=== PATIENT | male | born 1955 | race Caucasian/White ===

== ENCOUNTER 2020-02-23 09:11 | Emergency (ER) | payer MEDICARE ==
[~2020-02-23 09:11] MED LIST: ASPIRIN 32325 MG/TAB PO; FOLIC ACID 11 MG/TA1 PO; IPRATROPIUM BROM3 M1 IH; LIPITOR 10MG10 MG PO; LOPRESSOR 225 MG/TAB PO; PLETAL 100MG T100 MG PO; THERAGRAN TAB1 UDTAB PO; THIAMINE 1100 MG/TAB PO
[2020-04-05] MEDS ORDERED: PLETAL 100MG T100 MG PO (14:19)
[2020-04-05] MEDS ORDERED: LIPITOR20 MG PO (14:20)
[2020-04-05] MEDS ORDERED: LOPRESSOR 225 MG/TAB PO (14:20)
[2020-04-05] MEDS ORDERED: ASPIRIN 32325 MG/TAB PO (14:25)
== END 2020-02-23 09:29 | disposition left against medical advice (07) ==
LOC: COL.ER 09:11
DX: Z00.00 Encounter for general adult medical examination without abnormal findings (principal)

== ENCOUNTER 2020-04-06 09:09 | Day surgery (SDC) | payer MEDICARE, MEDICAID ==
[2020-04-06] VITALS (9 sets, daily range): BP systolic 118–146; BP diastolic 69–83; PULSE 70–87; TEMP 97.6–99.2
[~2020-04-06] VITALS: Ht 177.8 cm; Wt 85.1 kg
[~2020-04-06 09:09] MED LIST changes: +LIPITOR20 MG PO
--- NOTE | 2020-04-06 13:50 | NUR ---
Pt arrived to room at this time with PACU nurses. Resting in bed, CBI runnign at fast pace, urine is clear. Wants to eat, alert and oriented, VSS, will continue to monitor.
--- NOTE | 2020-04-06 18:17 | NUR ---
Pt has done well over shift, urine is reddish clear at moderate to slower rate. Pt asking about CT of chest, will address with Dr. Cruz if he rounds on the floor. VSS. REsting well, denies needs, will give bedside shift report to nightshift nruse who will resume care.
--- NOTE | 2020-04-06 20:00 | NUR ---
PT RESTING IN BED. CBI RUNNING AT MOD RATE W/ PINK DILUTE URINE. NO CLOTS BLADDER SPASMS. PT DROWSY BUT ANSWERS QUESTIONS APPROPRIATELY. IVF'S .45NS W/20KCL CONTINUES AT 75CC/HR TO LT F/A. PT DENEIS NEED FOR PAIN MEDS AT THIS TIME. CALL LIGHT IN REACH.
[2020-04-07 03:08] VITALS: BP 136/71; PULSE 76; TEMP 97.5
--- NOTE | 2020-04-07 04:07 | NUR ---
PT ASKS ABOUT CT CHEST D/T "SPOTS ON MY LUNGS AND LIVER" IV FELL OUT FROM LT F/A SITE.
--- NOTE | 2020-04-07 04:30 | NUR ---
NO CT ORDERS FOUND. WILL CLARIFY W/ DR IN AM.
[2020-04-07 07:28] LABS: BASO % 0.1 % (0.0-2.0); EOS % 0.1 % (0-4.0); GRAN # 10.8 (1.4-6.5); GRAN % 80.9 % (42.2-75.2); HEMATOCRIT 46.6 % (42.0-52.0); HEMOGLOBIN 15.2 g/dl (13.5-18.0); LYMPH # 1.5 (1.2-3.4); LYMPH % 11.5 % (20.0-51.0); MEAN CELL VOLUME 92 fl (80.0-100.0); MEAN CORPUSCULAR HEMOGLOBIN 30 pg (27.0-31.0); MEAN CORPUSCULAR HGB CONC 33 g/dl (33.0-37.0); MEAN PLATELET VOLUME 9.7 fl (7.4-10.4); MONO # 0.9 (0.1-0.6); PLATELET COUNT 205 K/mm3 (130-400); RED BLOOD COUNT 5.08 M/mm3 (4.20-5.60); REDCELL DISTRIBUTION WIDTH-CV 12.9 % (11.5-14.5)
[2020-04-07 07:29] VITALS: BP 141/76; PULSE 70; TEMP 97.5
[2020-04-07 07:42] LABS: CALCIUM 8.3 mg/dL (8.4-10.2); CREATININE, serum 1.03 (0.66-1.25); POTASSIUM 4.4 mmol/L (3.4-5.0)
--- NOTE | 2020-04-07 09:16 | NUR ---
Rizvi catheter discontinued as ordered. Primed with 200ml of saline. Removed 30ml from catheter balloon and removed catheter. Megan-care provided. Catheter stat-lock removed. Patient tolerated well, no complaints of pain. Explained to call everytime he voids so we can monitor his urine. Explained how the six cup routine works. Patient verbalized understanding. New IV started for patients CT scan. No other changes at this time. Call light within reach.
--- NOTE | 2020-04-07 10:01 | NUR ---
Initial visit; Patient thanked Foreign Correspondent for looking in on him and offering spiritual care.
[2020-04-07 11:08] VITALS: BP 140/79; PULSE 65; TEMP 97.4
--- NOTE | 2020-04-07 11:17 | NUR ---
ELMA met with the patient to discuss discharge plan. The patient lives alone in [place]. He reports independence with ADLs and has a cane and walker. The patient's PCP is Dr. Viktor Singh and he receives his medications from [facility]. He reports no difficulties obtaining his meds. The patient does not have a DPOA-HC completed. The patient plans to return home upon discharge. No additional needs at this time.
--- NOTE | 2020-04-07 12:50 | NUR ---
Patient is discharging home. He is voiding without issues. Urine is pink, no clots noted. It got senior research manager by the 6 cup. No pain with voiding. His CT has been completed. Discharge instructions discussed with patient. INT discontinued. All belongings sent with patient. He called for his ride. Explained when his follow up appointment is. Explained to hold his aspirin until Saturday. He verbalized understanding. Copies of discharge instructions sent with patient. Patient walked out with this nurse.
== END 2020-04-07 12:50 | disposition home or self-care (01) ==
LOC: SDCO 09:09 → SURG 13:50 → SDCO 04-07 12:50
PROVIDERS: Urology
DX: C67.4 Malignant neoplasm of posterior wall of bladder (principal); R31.0 Gross hematuria; E11.9 Type 2 diabetes mellitus without complications; I10 Essential (primary) hypertension; J44.9 Chronic obstructive pulmonary disease, unspecified; I25.10 Atherosclerotic heart disease of native coronary artery without angina pectoris; E78.00 Pure hypercholesterolemia, unspecified; F17.210 Nicotine dependence, cigarettes, uncomplicated; Z20.822 Contact with and (suspected) exposure to COVID-19; Z88.1 Allergy status to other antibiotic agents; Z79.82 Long term (current) use of aspirin; Z88.0 Allergy status to penicillin; Z95.1 Presence of aortocoronary bypass graft; Z95.5 Presence of coronary angioplasty implant and graft; Z79.899 Other long term (current) drug therapy
CPT/HCPCS: OP; J0690; J1100; J1885; J2405; J2704; J3010; J3480; J7120; Q9967

== ENCOUNTER 2020-06-04 13:36 | Emergency (ER) | payer MEDICARE, MEDICAID ==
[~2020-06-04] VITALS: Ht 177.8 cm; Wt 84.1 kg
[2020-06-04 13:46] VITALS: TEMP 98.1
[2020-06-04 14:20] LABS: BASO % 0.5 % (0.0-2.0); EOS # 0.1 (0.0-0.7); EOS % 0.7 % (0-4.0); GRAN # 6.1 (1.4-6.5); GRAN % 71.8 % (42.2-75.2); HEMOGLOBIN 16.9 g/dl (13.5-18.0); LYMPH # 1.5 (1.2-3.4); LYMPH % 17.2 % (20.0-51.0); MEAN CELL VOLUME 86 fl (80.0-100.0); MEAN CORPUSCULAR HEMOGLOBIN 29 pg (27.0-31.0); MEAN CORPUSCULAR HGB CONC 33 g/dl (33.0-37.0); MEAN PLATELET VOLUME 9.2 fl (7.4-10.4); MONO # 0.8 (0.1-0.6); MONO % 9.4 % (1.7-9.3); PLATELET COUNT 234 K/mm3 (130-400); RED BLOOD COUNT 5.92 M/mm3 (4.20-5.60); REDCELL DISTRIBUTION WIDTH-CV 13.2 % (11.5-14.5)
[2020-06-04 14:25] LABS: ALANINE AMINOTRANSFERASE 24 U/L (4-49); ALBUMIN 4.1 gm/dL (3.5-5.0); ALKALINE PHOSPHATASE 100 U/L (50-136); ANION GAP 9 mmol/L (7-16); AST,SGOT 46 U/L (15-37); BILIRUBIN,TOTAL 0.4 mg/dL (0.0-1.0); BLOOD UREA NITROGEN 26 mg/dL (9-20); CALCIUM 8.9 mg/dL (8.4-10.2); CARBON DIOXIDE 24 mmol/L (22-30); CHLORIDE 103 mmol/L (98-107); CREATININE, serum 1.58 (0.66-1.25); GLUCOSE 111 mg/dL (74-106); LIPASE 116 U/L (23-300); POTASSIUM 4.5 mmol/L (3.4-5.0); SODIUM 136 mmol/L (137-145); TOTAL PROTEIN 7.8 gm/dL (6.4-8.2)
[2020-06-04 14:37] LABS: TROPONIN-I < 0.012 ng/mL (0.000-0.035)
[2020-06-04 16:05] VITALS: BP 144/82; PULSE 84
== END 2020-06-04 16:09 | disposition home or self-care (01) ==
LOC: COL.ER 13:36
PROVIDERS: Emergency Medicine
DX: C67.9 Malignant neoplasm of bladder, unspecified (principal); N13.30 Unspecified hydronephrosis; F17.210 Nicotine dependence, cigarettes, uncomplicated; Z80.8 Family history of malignant neoplasm of other organs or systems; Z88.0 Allergy status to penicillin; Z88.1 Allergy status to other antibiotic agents
CPT/HCPCS: J2405; J7030; Q9967